=== PATIENT | male | born 1990 | race African-American/Black ===

== ENCOUNTER 2018-01-17 10:24 | Inpatient (IN) | payer MEDICAID ==
[2018-01-09 10:49] LABS: BASOPHILS # (AUTO) 0.1 X10'3 (0-0.2); BASOPHILS % (AUTO) 0.6 % (0-1); EOSINOPHILS # (AUTO) 0.5 X10'3 (0-0.9); EOSINOPHILS % (AUTO) 4.3 % (0-6); LYMPHOCYTES # (AUTO) 3.7 X10'3 (1.1-4.8); LYMPHOCYTES % (AUTO) 30.7 % (21-51); MEAN CORPUSCULAR HEMOGLOBIN 29.5 PG (27.0-31.0); MEAN CORPUSCULAR HGB CONC 34.1 % (33.0-36.5); MEAN CORPUSCULAR VOLUME 86.4 FL (78-98); MEAN PLATELET VOLUME 7.5 FL (7.4-10.4); MONOCYTES # (AUTO) 1.1 X10'3 (0-0.9); MONOCYTES % (AUTO) 9.5 % (2-12); NEUTROPHILS # (AUTO) 6.6 X10'3 (1.8-7.7); NEUTROPHILS % (AUTO) 54.9 % (42-75); PRE OP HEMOGLOBIN 17.4 g/dL (14.0-17.9); PRE OP PLATELET COUNT 279 X10'3 (140-440); RED CELL DISTRIBUTION WIDTH 12.8 % (11.5-14.5)
[2018-01-09 10:56] LABS: ALBUMIN 3.9 G/DL (3.4-5.0); ALKALINE PHOSPHATASE 158 IU/L (46-116); BLOOD UREA NITROGEN 18 MG/DL (7-18); BUN/CREATININE RATIO 19.4 (5.4-32.0); CHLORIDE 106 MMOL/L (99-107); CREATININE 0.93 MG/DL (0.60-1.10); PRE OP ANION GAP 14 (8-16); PRE OP AST 33 U/L (10-37); PRE OP BILIRUB, TOTAL 0.3 MG/DL (0.0-1.0); PRE OP GLUCOSE 128 MG/DL (70-104); PRE OP POTASSIUM 3.5 MMOL/L (3.4-5.1); PRE OP SODIUM 143 MMOL/L (135-145); TOTAL CARBON DIOXIDE 23.4 MMOL/L (24-32); TOTAL PROTEIN 7.9 G/DL (6.4-8.2); eGFR > 90 ML/MIN
[2018-01-09 10:58] LABS: PRE OP ALT 111 U/L (30-65)
[~2018-01-17] VITALS: Ht 162.6 cm; Wt 81.3 kg
[2018-01-17] VITALS (15 sets, daily range): BP systolic 115–179; BP diastolic 57–85
[~2018-01-17 10:24] MED LIST: ARIP300S3 IM; HYDR-565 PO; cefazolin/dext.iso 2gm/50ml 50 ML IV ONE; famotidine 20mg tablet PO ONE
[2018-01-17] MEDS ORDERED: vancomycin inj 1,500 MG in normal saline 300ml IV soln IV ONE (10:25)
[2018-01-17] MEDS: ringers solution, lacted 1,000 ML IV SCH ×3 (10:56→16:40)
[2018-01-17] MEDS ORDERED: sevoflurane 250ml liquid IH ONE (11:49)
[2018-01-17] MEDS ORDERED: midazolam 2 mg/2 ml injection ONE (11:55)
[2018-01-17] MEDS ORDERED: fentaNYL /PF 50mcg/ml 5ml ampule ONE (11:55)
[2018-01-17] MEDS ORDERED: LIDOcaine 2% (20mg/ml) 5ml vial ONE (12:23)
[2018-01-17] MEDS ORDERED: propofol inj 20 ML IV ONE (12:23)
[2018-01-17] MEDS ORDERED: rocuronium 10mg/ml inj IV ONE (12:23)
[2018-01-17] MEDS ORDERED: ringers solution, lacted 1,000 ML IV SCH (12:34)
[2018-01-17] MEDS ORDERED: proCHLORperazine 10 MG/2 ml inj IV PRN (12:35)
[2018-01-17] MEDS ORDERED: morphine 4 MG/ML inj SYRINge IV PRN ×2 (12:35)
[2018-01-17] MEDS ORDERED: meperidine/PF 50mg/ml syringe IV PRN (12:35)
[2018-01-17] MEDS ORDERED: ondansetron/PF 4mg/2ml inj IV PRN ×2 (12:35→14:45)
[2018-01-17] MEDS ORDERED: fentaNYL/PF 50MCG/1 ML 2ML syringe IV PRN ×2 (12:35)
[2018-01-17] MEDS ORDERED: morphine 10mg/ml inj. ONE (13:40)
[2018-01-17] MEDS ORDERED: ondansetron/PF 4mg/2ml inj ONE (13:40)
[2018-01-17] MEDS ORDERED: dexamethasone sod phosphate 4mg/ml inj. ONE (13:40)
[2018-01-17] MEDS ORDERED: cloNIDine hcl/PF 100mcg/ml inj ONE (14:26)
[2018-01-17] MEDS ORDERED: acetaminophen 325mg tablet PO PRN (14:45)
[2018-01-17] MEDS ORDERED: HYDROcodone/acetaminophen 10/325mg tab PO PRN (14:45)
[2018-01-17] MEDS ORDERED: diphenhydrAMINE 25mg capsule PO PRN ×2 (14:45)
[2018-01-17] MEDS ORDERED: bisacodyl 10mg suppository rectal RC PRN (14:45)
[2018-01-17] MEDS ORDERED: magnesium hydroxide 30ml (MOM) UD suspension PO PRN (14:45)
[2018-01-17] MEDS ORDERED: HYDROmorphone inj. 0.5 MG/0.5 ML DISP.SYRIN IV PRN ×2 (14:45)
[2018-01-17] MEDS ORDERED: morphine 8mg/ml inj. syringe ONE (14:52)
[2018-01-17] MEDS ORDERED: fentaNYL/PF 50MCG/1 ML 2ML syringe ONE (14:59)
[2018-01-17] MEDS: HYDROcodone/acetaminophen 10/325mg tab PO PRN (16:17)
[2018-01-17] MEDS: potassium cl 20mEq in 1/2 NS 1,000 ML IV SCH (16:55)
[2018-01-17] MEDS ORDERED: aripiprazole 400mg suspension ER syringe IM SCH (17:06)
[2018-01-17] MEDS ORDERED: vancomycin/NS 1 GM ADD-VANTAGE 250 ML IV SCH (20:00)
[2018-01-17] MEDS: clindamycin 600mg/D5W 50ml 50 ML IV SCH (20:04)
[2018-01-17] MEDS: aripiprazole 400mg suspension ER syringe IM SCH ×2 (20:04→20:08)
[2018-01-17] MEDS: sennosides 8.6mg tablet PO SCH (20:12)
[2018-01-18 02:00] VITALS: BP 111/56
[2018-01-18] MEDS: clindamycin 600mg/D5W 50ml 50 ML IV SCH (02:13)
[2018-01-18] MEDS: potassium cl 20mEq in 1/2 NS 1,000 ML IV SCH ×2 (04:03→17:23)
[2018-01-18 06:00] VITALS: BP 124/58
[2018-01-18 06:03] LABS: BASOPHILS % (AUTO) 0.1 % (0-1); EOSINOPHILS % (AUTO) 0 % (0-6); HEMATOCRIT 44.9 % (42.0-52.0); HEMOGLOBIN 15.6 g/dl (14.0-17.9); LYMPHOCYTES # (AUTO) 1.5 X10'3 (1.1-4.8); LYMPHOCYTES % (AUTO) 8.1 % (21-51); MEAN CORPUSCULAR HEMOGLOBIN 30.4 PG (27.0-31.0); MEAN CORPUSCULAR HGB CONC 34.9 % (33.0-36.5); MEAN CORPUSCULAR VOLUME 87.3 FL (78-98); MEAN PLATELET VOLUME 7.9 FL (7.4-10.4); MONOCYTES # (AUTO) 1.8 X10'3 (0-0.9); MONOCYTES % (AUTO) 9.4 % (2-12); NEUTROPHILS # (AUTO) 15.8 X10'3 (1.8-7.7); NEUTROPHILS % (AUTO) 82.4 % (42-75); PLATELET COUNT 282 X10'3 (140-440); RED BLOOD COUNT 5.14 X10'6 (4.70-6.10); RED CELL DISTRIBUTION WIDTH 12.6 % (11.5-14.5); WHITE BLOOD COUNT 19.2 X10'3 (4.5-11.0)
[2018-01-18 06:17] LABS: ANION GAP 11 (8-16); CHLORIDE 105 MMOL/L (99-107); POTASSIUM 4.1 MMOL/L (3.5-5.1); SODIUM 141 MMOL/L (135-145); TOTAL CARBON DIOXIDE 24.9 MMOL/L (24-32)
[2018-01-18] MEDS ORDERED: benzocaine/menthol oral lozeng 1 EACH BOX MM PRN (06:30)
[2018-01-18] MEDS ORDERED: aripiprazole 400mg suspension ER syringe IM SCH (08:00)
[2018-01-18 10:00] VITALS: BP 113/57
[2018-01-18] MEDS: HYDROcodone/acetaminophen 10/325mg tab PO PRN ×2 (14:59→23:33)
[2018-01-18 18:00] VITALS: BP 140/96
[2018-01-18] MEDS: sennosides 8.6mg tablet PO SCH (20:30)
[2018-01-18 22:00] VITALS: BP 117/61
[2018-01-19 06:00] VITALS: BP 134/76
[2018-01-19] MEDS: potassium cl 20mEq in 1/2 NS 1,000 ML IV SCH (06:43)
[2018-01-19 07:33] LABS: BASOPHILS % (AUTO) 0.2 % (0-1); EOSINOPHILS # (AUTO) 0.3 X10'3 (0-0.9); EOSINOPHILS % (AUTO) 1.5 % (0-6); HEMATOCRIT 46.8 % (42.0-52.0); HEMOGLOBIN 15.7 g/dl (14.0-17.9); LYMPHOCYTES # (AUTO) 2.6 X10'3 (1.1-4.8); LYMPHOCYTES % (AUTO) 14.7 % (21-51); MEAN CORPUSCULAR HEMOGLOBIN 29.6 PG (27.0-31.0); MEAN CORPUSCULAR HGB CONC 33.6 % (33.0-36.5); MEAN CORPUSCULAR VOLUME 88.2 FL (78-98); MEAN PLATELET VOLUME 7.6 FL (7.4-10.4); MONOCYTES # (AUTO) 1.9 X10'3 (0-0.9); MONOCYTES % (AUTO) 10.6 % (2-12); NEUTROPHILS # (AUTO) 13.2 X10'3 (1.8-7.7); PLATELET COUNT 254 X10'3 (140-440); RED BLOOD COUNT 5.31 X10'6 (4.70-6.10); RED CELL DISTRIBUTION WIDTH 12.5 % (11.5-14.5)
[2018-01-19 10:00] VITALS: BP 142/76
[2018-01-19] MEDS: HYDROcodone/acetaminophen 10/325mg tab PO PRN (10:17)
[2018-01-19] MEDS ORDERED: HYDR-569 PO (12:38)
[2018-02-01] MEDS ORDERED: aripiprazole 400mg suspension ER syringe IM SCH (10:00)
== END 2018-01-19 14:35 | disposition home or self-care (01) | DRG 317 ==
LOC: PAS 10:24 → ORTHO 4S 14:43
PROVIDERS: ADMIT Orthopaedic Surgery; ATTEND Orthopaedic Surgery
PROC: 0LQQ0ZZ Repair Right Knee Tendon, Open Approach (ICD-10-PCS; principal; 2018-01-17 11:49)
DX: M66.88 Spontaneous rupture of other tendons, other sites (principal); F20.9 Schizophrenia, unspecified; I10 Essential (primary) hypertension; I25.10 Atherosclerotic heart disease of native coronary artery without angina pectoris; F17.200 Nicotine dependence, unspecified, uncomplicated; F31.9 Bipolar disorder, unspecified; J02.9 Acute pharyngitis, unspecified; Z79.899 Other long term (current) drug therapy; Z90.49 Acquired absence of other specified parts of digestive tract
CPT/HCPCS: 36415; 80051; 80053; 85025; 85610; 85730; 97116; 97161; A6223; A6446; A6449; A7000; J0690; J0735; J1100; J2001; J2250; J2270; J2405; J2704; J3010; J3370; J3490; J7120

== ENCOUNTER → 2020-06-14 | Emergency (ER) | payer MEDICAID ==
[~2020-06-14] VITALS: Ht 160 cm; Wt 92.0 kg
[~2020-06-14] MED LIST changes: +HYDR-4383 PO; -HYDR-565 PO; -cefazolin/dext.iso 2gm/50ml 50 ML IV ONE; -famotidine 20mg tablet PO ONE
[2020-06-14 06:31] VITALS: BP 114/57
== END | disposition home or self-care (01) ==
LOC: ER 06:23
DX: R20.2 Paresthesia of skin (principal); F15.90 Other stimulant use, unspecified, uncomplicated; R21 Rash and other nonspecific skin eruption; I10 Essential (primary) hypertension; F17.200 Nicotine dependence, unspecified, uncomplicated; F12.90 Cannabis use, unspecified, uncomplicated; F11.90 Opioid use, unspecified, uncomplicated; Z60.2 Problems related to living alone; Z79.899 Other long term (current) drug therapy
CPT/HCPCS: 99281

== ENCOUNTER 2021-01-07 20:22 | Emergency (ER) | payer MEDICAID ==
[~2021-01-07] VITALS: Ht 162.6 cm; Wt 83.6 kg
[2021-01-07 20:48] VITALS: BP 131/87
--- NOTE | 2021-01-07 21:23 | NUR ---
XRAY COMPLETED AT BEDSIDE
== END 2021-01-07 22:17 | disposition home or self-care (01) ==
LOC: ER 20:23
DX: S93.402A Sprain of unspecified ligament of left ankle, initial encounter (principal); M25.572 Pain in left ankle and joints of left foot; I10 Essential (primary) hypertension; F12.90 Cannabis use, unspecified, uncomplicated; F11.90 Opioid use, unspecified, uncomplicated; Z60.2 Problems related to living alone; Z79.899 Other long term (current) drug therapy; X58.XXXA Exposure to other specified factors, initial encounter; Y93.89 Activity, other specified; Y92.89 Other specified places as the place of occurrence of the external cause; Y99.8 Other external cause status
CPT/HCPCS: 73610; 99284

== ENCOUNTER 2022-09-02 09:52 | Emergency (ER) | payer MEDICAID ==
[~2022-09-02] VITALS: Ht 162.6 cm; Wt 76.5 kg
[2022-09-02 10:14] VITALS: BP 141/80
[2022-09-02] MEDS ORDERED: HYDR-3972 PO (10:45)
== END 2022-09-02 10:55 | disposition home or self-care (01) ==
LOC: ER 09:54
DX: S80.01XA Contusion of right knee, initial encounter (principal); M25.461 Effusion, right knee; I10 Essential (primary) hypertension; G89.29 Other chronic pain; M54.50 Low back pain, unspecified; F17.200 Nicotine dependence, unspecified, uncomplicated; F12.90 Cannabis use, unspecified, uncomplicated; F19.10 Other psychoactive substance abuse, uncomplicated; V87.8XXA Person injured in other specified noncollision transport accidents involving motor vehicle (traffic), initial encounter; Y93.89 Activity, other specified; Y92.89 Other specified places as the place of occurrence of the external cause; Y99.8 Other external cause status
CPT/HCPCS: 73564; 99284